=== PATIENT | male | born 1960 | race Caucasian/White ===

== ENCOUNTER → 2023-10-17 07:06 | Outpatient (REF) | payer MEDICARE, SELFPAY | LOC: MRI 07:06 | PROVIDERS: ATTENDING PHYSICIAN Orthopaedic Surgery; FAMILY PHYSICIAN Family Medicine | DX: M25.561 Pain in right knee (principal) | CPT/HCPCS: 73721 ==

== ENCOUNTER → 2024-01-30 20:22 | Outpatient (REF) | payer MEDICARE, SELFPAY | LOC: MRI 20:22 | PROVIDERS: ATTENDING PHYSICIAN Orthopaedic Surgery; FAMILY PHYSICIAN Dermatology | DX: M25.562 Pain in left knee (principal) | CPT/HCPCS: 73721 ==

== ENCOUNTER → 2025-05-17 08:13 | Outpatient (REF) | payer MEDICARE, SELFPAY | LOC: RCS 08:13 | PROVIDERS: ATTENDING PHYSICIAN Internal Medicine Cardiovascular Disease; FAMILY PHYSICIAN Family Medicine | DX: R00.1 Bradycardia, unspecified (principal) | CPT/HCPCS: 93306 ==

== ENCOUNTER → 2025-06-20 08:30 | Outpatient (REF) | payer MEDICARE, SELFPAY | LOC: HWRCS 08:30 | PROVIDERS: ATTENDING PHYSICIAN Internal Medicine Cardiovascular Disease; FAMILY PHYSICIAN Family Medicine | DX: I49.3 Ventricular premature depolarization (principal); I47.29 Other ventricular tachycardia; R07.89 Other chest pain | CPT/HCPCS: 78452; 93017; A9500 ==